=== PATIENT | female | born 1975 | race Caucasian/White ===

== ENCOUNTER → 2020-02-25 13:43 | Outpatient (CLI) | payer OTHER, SELFPAY ==
--- NOTE | ~2020-02-25 | US_ITS ---
EXAMINATION: US pelvic complete w TV DATE: 02/25/2020 14:22 INDICATION: Right lower quadrant pain TECHNIQUE: Multiple transabdominal and endovaginal sonographic images of the pelvis were obtained. COMPARISON: CT, 05/28/2019 FINDINGS: The uterus measures 10.9 x 4.9 x 5.4 cm. The endometrial complex measures 10 mm. The right ovary measures 1.7 x 1.2 x 2.5 cm. The left ovary measures 3.9 x 1.7 x 3.0 cm. There is normal vascul ar flow in the ovaries. There is trace, likely physiologic free fluid in the pelvis. IMPRESSION: 1. No sonographic correlate for the patient's symptoms. Reviewed, dictated and finalized at location A.
== END ==
PROVIDERS: PCP Registered Nurse; Visit Provider Registered Nurse
DX: R10.31 Right lower quadrant pain (principal); R10.2 Pelvic and perineal pain
CPT/HCPCS: 76830; 76856

== ENCOUNTER 2020-06-02 17:26 | Outpatient (CLI) | payer OTHER, SELFPAY ==
--- NOTE | ~2020-06-02 | MM_ITS ---
EXAMINATION: MM screening rico BI w bart HISTORY: Screening TECHNIQUE: Craniocaudal and mediolateral oblique 3-D tomosynthesis images were obtained and synthetic 2-D images were generated. CAD analysis was submitted and interpreted. COMPARISON: No prior mammogram is available for comparison at this institution. BREAST PARENCHYMAL COMPOSITION: Comparison to multiple prior studies sequentially, with oldest review ed study dated 03/24/2017. FINDINGS: There is no evidence of suspicious mass, calcification, or architectural distortion to sugg est malignancy in either breast. There has been no suspicious interval change. IMPRESSION: 1. No mammographic evidence of malignancy. 2. Recommend routine screening mammography in one year. BI-RADS Category 1: Negative Reviewed, dictated and finalized at location A. 3 PASTRY
== END 2020-06-02 17:27 | disposition home or self-care (01) ==
LOC: ANHIMG 17:32
PROVIDERS: PCP Registered Nurse; Visit Provider Registered Nurse
DX: Z12.31 Encounter for screening mammogram for malignant neoplasm of breast (principal)
CPT/HCPCS: 77063; 77067

== ENCOUNTER 2021-07-30 09:04 | Outpatient (CLI) | payer OTHER, SELFPAY ==
--- NOTE | ~2021-07-30 | MM_ITS ---
EXAMINATION: MM screening rico BI w bart HISTORY: Screening TECHNIQUE: Craniocaudal and mediolateral oblique 3-D tomosynthesis images were obtained and synthetic 2-D images were generated. CAD analysis was submitted and interpreted. COMPARISON: Comparison to multiple prior studies sequentially, with oldest reviewed study dated 07/2016. BREAST PARENCHYMAL COMPOSITION: The breasts are heterogenously dense, which may obscure small masses FINDINGS: There is no evidence of suspicious mass, calcification, or architectural distortion to sugg est malignancy in either breast. There has been no suspicious interval change. IMPRESSION: 1. No mammographic evidence of malignancy. 2. Recommend routine screening mammography in one year. BI-RADS Category 1: Negative Reviewed, dictated and finalized at location A. 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
== END 2021-07-30 09:05 | disposition home or self-care (01) ==
LOC: ANHIMG 09:05
PROVIDERS: PCP Registered Nurse; Visit Provider Obstetrics & Gynecology
DX: Z12.31 Encounter for screening mammogram for malignant neoplasm of breast (principal)
CPT/HCPCS: 77063; 77067

== ENCOUNTER 2022-06-13 07:38 | Observation (INO) | payer OTHER, SELFPAY ==
[2022-06-13] VITALS (35 sets, daily range): BP systolic 98–123; BP diastolic 53–78; PULSE 71–101; RESP 11–24; TEMP 36.8; O2SAT 96–100; BMI 22.4
--- NOTE | ~2022-06-13 | XR_ITS ---
EXAMINATION: XR chest 2V DATE: 06/13/2022 08:19 INDICATION: Right-sided chest pain TECHNIQUE: PA and lateral views of the chest were obtained. COMPARISON: None FINDINGS: The lungs are clear with no focal airspace opacities, pulmonary edema, pleural effusion or pneumothor ax. The cardiomediastinal silhouette is normal. Mild thoracic dextrocurvature with mild to moderate s pondylosis. IMPRESSION: 1. No acute cardiopulmonary disease. Reviewed, dictated and finalized at location B. EXTRACTOR
--- NOTE | ~2022-06-13 | US_ITS ---
Limited Abdominal Sonogram: Real-time sonographic imaging of the right upper quadrant was performed. Clinical History: Abdominal pain Findings: The liver appears normal with no evidence of mass lesion or bile duct dilatation. Main por braden vein demonstrates normal direction of flow. The gallbladder is well distended, and appears normal with no evidence of gallstone or wall thickening. The common bile duct measures 3 mm. The visualize d pancreas, aorta, and IVC are unremarkable. Impression: No significant abnormality seen. Reviewed, dictated and finalized at location . 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
--- NOTE | 2022-06-13 07:43 | ECG_ITS ---
Measurements Intervals [place] Rate: 85 P: 73 NM: 158 QRS: 65 QRSD: 89 T: 42 QT: 354 QTc: 422 Interpretive Statements SINUS RHYTHM BASELINE ARTIFACT- I, III, AVR, AVL, AVF NORMAL ECG NO PREVIOUS ECG AVAILABLE FOR COMPARISON Electronically Signed On 06-13-2022 7:52:54 EGG BUYER by Gustabo Malik D.O.
--- NOTE | 2022-06-13 07:54 | ED.CHESTPAIN ---
HPI - Chest Pain General Chief Complaint: Chest Pain Stated Complaint: r chest pain into shoulder/vomiting Time Seen by Provider: 06/13/22 07:50 History of Present Illness HPI narrative: Patient is a 46-year-old female who presents ER with chest pain. Sudden onset this morning. Right-sided. Radiates to the right shoulder. Associated with vomiting. Has been having this intermittently. PCP was going to refer her to cardiology. Recently had outpatient labs that were unremarkable and unavailable to us here. No exertional chest discomfort. No sedation eating or drinking. Had some mild epigastric discomfort. No history of gallstones. No fevers or chills. Patient reports she gets flushed the skin when this occurs. Related Data Home Medications Medication Instructions Recorded Confirmed rizatriptan 10 mg tablet 10 mg PO ONCE PRN Migraine Headache 05/31/19 06/13/22 omeprazole 20 mg capsule,delayed 20 mg PO DAILY 06/13/22 06/13/22 release Allergies Allergy/AdvReac Type Severity Reaction Status Date / Time No Known Allergies Allergy Mild Verified 07/05/21 08:35 Review of Systems Review of Systems: All systems reviewed & are unremarkable except as noted in HPI and below Constitutional: Constitutional: Denies chills, Denies fatigue and Denies fever(s) Comments: Feels flushed ENT: Denies nasal congestion and Denies sore throat Cardiovascular: Cardiovascular: Reports chest pain, Denies rapid heart rate and Reports radiating jaw, neck or arm pain Respiratory: Respiratory: Denies cough and Denies dyspnea Gastrointestinal: Gastrointestinal: Reports abdominal pain and Reports nausea Genitourinary: Genitourinary: Denies dysuria and Denies flank pain PMFSH Past Medical History Medical History Chronic constipation Kidney stones During her . No intervention required. Migraine headache (Unknown) Screening mammogram, encounter for Surgical History Surgical History No history of previous surgery Family History Family History Father Skin cancer Malignant neoplasm of prostate Cerebrovascular accident Hypertension Atrial fibrillation Mother Heart disease Chronic kidney disease Hypertension Atrial fibrillation Mitral valve replaced Aortic aneurysm Grandparent Cerebrovascular accident maternal grandfather-- Hypertension maternal grandmother-- Social History Social History Smoking status: Never smoker Alcohol intake: never Substance use: never Substance use type: does not use Lack of Transportation: No Lack of Food: Never True Current Housing: I Have Housing Concerned About Future Housing: No Difficulty Paying Gas/Electric Bills: No Difficulty Paying for Meds: No Currently Unemployed: No Education: Associate Degree Difficulty w/ Childcare or Family Care: No Living arrangements: other Additional living arrangements comments: The patient lives at home with her and has 5 children. All were delivered vaginally. 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 HEAD: Normocephalic, atraumatic. ENT: Mucous membranes moist. CHEST: Clear to auscultation. No respiratory distress. HEART: Regular rate and rhythm. No murmur heard. Normal peripheral pulses. ABDOMEN: Soft, nontender, nondistended. EXTREMITIES: Normal range of motion. No edema. SKIN: Warm, dry, no rash. N
[2022-06-13 08:11] LABS: Basophils Percent Auto 0.3 % (0.2-1.2); Eosinophils Absolute Auto 0.1 K/mm3 (0-0.3); Eosinophils Percent Auto 0.9 % (0-4.4); Hematocrit 39.2 % (37.0-47.0); Hemoglobin 13.1 g/dL (12.0-15.0); Immature Granulocyte Absolute 0.02 K/mm3 (0.00-0.031); Immature Granulocyte Percent A 0.3 % (0-0.5); Lymphocytes Absolute Auto 2.25 K/mm3 (0.9-3.2); Lymphocytes Percent Auto 39.3 % (18.3-44.2); Mean Corpuscular HGB Conc 33.4 g/dl (32-36); Mean Corpuscular Hemoglobin 30.1 pg (26-34); Mean Corpuscular Volume 90.1 fl (80-100); Mean Platelet Volume 10.1 fl (7.4-10.4); Monocytes Absolute Auto 0.3 K/mm3 (0.1-0.6); Monocytes Percent Auto 5.4 % (2.6-8.5); Neutrophils Absolute Auto 3.1 K/mm3 (1.3-6.7); Neutrophils Percent Auto 53.8 % (45.5-73.1); Platelet Count Result 225 k/mm3 (150-375); Red Blood Count 4.35 M/mm3 (4.2-5.4); Red Cell Distribution Width 12.7 % (11.5-14.5); White Blood Count 5.7 K/mm3 (4.5-10.0)
[2022-06-13 08:17] LABS: INR 0.9; Prothrombin Time 11.9 Seconds (11.1-14.7)
[2022-06-13 08:18] LABS: Alanine Aminotransferase 19 U/L (6-35); Albumin Level 4.5 g/dL (3.5-5.1); Alkaline Phosphatase 68 U/L (38-126); Anion Gap 7 mmol/L (8-16); Aspartate Amino Transferase 21 U/L (14-36); Bilirubin,Total 0.4 mg/dL (0.2-1.3); Blood Urea Nitrogen 25 mg/dL (7-17); Calcium 9.1 mg/dL (8.4-10.2); Carbon Dioxide 26 mmol/L (22-30); Chloride 104 mmol/L (98-107); Estimated CRCL calculation 76 ml/min; Estimated Glomerular Filt Rate > 60; Glucose 100 mg/dL (65-110); Lipase 139 U/L (23-300); Partial Thromboplastin Time 23.3 SECONDS (22.3-36.8); Sodium 137 mmol/L (137-145)
[2022-06-13 08:29] LABS: Troponin I < 0.012 ng/mL (0.000-0.034)
[2022-06-13 11:25] LABS: Troponin I 0.017 ng/mL (0.000-0.034)
[2022-06-13] MEDS: NITROGLYCERIN SL 0.4 MG TABLET SUBLINGUAL (12:38)
[2022-06-13 12:44] LABS: Influenza A QL RT-PCR Negative (Negative); Influenza B QL RT-PCR Negative (Negative); SARS-CoV-2 RNA PCR Negative
--- NOTE | 2022-06-13 13:52 | ADMGEN ---
This patient, Elizabeth Shepherd, was admitted to Intensive Care Unit-9. Patient/family oriented to hospital policies and general routines including ID bracelet, bed and alarms, visiting hours, pain management, procedures, bathroom and other care routines, personal items, smoking policy, room service/diet, and visiting hours. Information on how to activate the Rapid Response Team has been discussed. Patient/Family are encouraged to report perceived risks to care and to ask questions if they do not understand what they are told or what they should do.
[2022-06-13 15:26] LABS: Troponin I < 0.012 ng/mL (0.000-0.034)
--- NOTE | 2022-06-13 15:26 | PM.IMHP ---
H&P: HPI History of Present Illness Date/Time: 06/13/22 15:26 Chief Complaint: Chest pain Narrative: this is a very pleasant 46-year-old woman without any prior history of cardiac problems who was admitted to the hospital from the emergency room after she was awakened this morning with chest pain at her residence and came into the emergency room to have this evaluated. The patient is feeling well now and does not have any complaints. She was awakened with the symptoms at about 630 this morning from sleep and describes it as a relatively sharp right precordial chest pain as center around the right breast and then moved to the center of the chest in the substernal location it then radiated into the right shoulder and into the right side of the neck. The discomfort at its worst was rather severe she and her elected to come to the emergency room for to have this evaluated. She states that by the time she got here the pain was significantly improved on its own. The pain was alleviated the rest of the way when she took a nitroglycerin tablet. Her electro cardiogram was unremarkable. She has had 2 levels of troponins that were negative down there. In the face of that the ED physician still determined to admit her to the hospital for further evaluation. The 3rd troponin sample is pending at the time of this dictation. 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 Apparently she did have ultrasound of her right upper quadrant in the emergency room that was also negative. She is a lifelong nonsmoker and there is no family history of premature ischemic heart disease Review of Systems Constitutional: Constitutional: Reports no additional constitutional complaints Eyes: Eyes: Reports no additional eye complaints ENT: Reports system reviewed and no additional complaints, except as documented Cardiovascular: Cardiovascular: Reports as per HPI Respiratory: Respiratory: Reports no additional respiratory complaints Gastrointestinal: Gastrointestinal: Reports no additional gastrointestinal complaints Musculoskeletal: Musculoskeletal: Reports no additional musculoskeletal complaints Integumentary/Breasts: Skin/Breast: Reports system reviewed and no additional complaints, except as docu Neurologic: Reports system reviewed and no additional complaints, except as documented [facility] Past Medical History Medical History (Updated 06/13/22 @ 15:32 by Darrion Mtz MD) Chronic constipation Kidney stones During her . No intervention required. Migraine headache (Unknown) Screening mammogram, encounter for Surgical History Surgical History (Updated 06/13/22 @ 09:55 by Samuel Tran MD) No history of previous surgery Family History Family History Father Skin cancer Malignant neoplasm of prostate Cerebrovascular accident Hypertension Atrial fibrillation Mother Heart disease Chronic kidney disease Hypertension Atrial fibrillation Mitral valve replaced Aortic aneurysm Grandparent Cerebrovascular accident maternal grandfather-- Hypertension maternal grandmother-- Social History Social History (Updated 07/05/21 @ 08:37 by Janny Newton [facility]) Smoking status: Never smoker Alcohol intake: never Substance use: never Substance use type: does not use Lack of Transportation: No Lack of Food: Never True Current Housing: I Have Housing Concerned About Future Housing: No Difficulty Paying Gas/Electric Bills: No Difficulty Paying for Meds: No Currently Unemployed: No Education: Associate Degree Difficulty w/ Childcare or Family Care: No Living arrangements: other Additional living arra
--- NOTE | 2022-06-13 15:41 | PM.SD2 ---
Same Day Admit/Disch: HPI History of Present Illness Chief complaint: Chest Pain Narrative: Elizabeth Shepherd is a 46 year old female without any prior history of cardiac problems who was admitted to the hospital from the emergency room after she was awakened this morning with chest pain at her residence and came into the emergency room to have this evaluated. The patient is feeling well now and does not have any complaints. She was awakened with the symptoms at about 630 this morning from sleep and describes it as a relatively sharp right precordial chest pain as center around the right breast and then moved to the center of the chest in the substernal location it then radiated into the right shoulder and into the right side of the neck. The discomfort at its worst was rather severe she and her elected to come to the emergency room for to have this evaluated. She states that by the time she got here the pain was significantly improved on its own. The pain was alleviated the rest of the way when she took a nitroglycerin tablet. Her electro cardiogram was unremarkable. She has had 2 levels of troponins that were negative down there. In the face of that the ED physician still determined to admit her to the hospital for further evaluation. The 3rd troponin sample is pending at the time of this dictation. 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 Apparently she did have ultrasound of her right upper quadrant in the emergency room that was also negative. She is a lifelong nonsmoker and there is no family history of premature ischemic heart disease [facility] Past Medical History Medical History Chronic constipation Kidney stones During her . No intervention required. Migraine headache (Unknown) Screening mammogram, encounter for Surgical History Surgical History No history of previous surgery Family History Family History Father Skin cancer Malignant neoplasm of prostate Cerebrovascular accident Hypertension Atrial fibrillation Mother Heart disease Chronic kidney disease Hypertension Atrial fibrillation Mitral valve replaced Aortic aneurysm Grandparent Cerebrovascular accident maternal grandfather-- Hypertension maternal grandmother-- Social History Social History Smoking status: Never smoker Alcohol intake: never Substance use: never Substance use type: does not use Lack of Transportation: No Lack of Food: Never True Current Housing: I Have Housing Concerned About Future Housing: No Difficulty Paying Gas/Electric Bills: No Difficulty Paying for Meds: No Currently Unemployed: No Education: Associate Degree Difficulty w/ Childcare or Family Care: No Living arrangements: other Additional living arrangements comments: The patient lives at home with her and has 5 children. All were delivered vaginally. 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
== END 2022-06-13 16:23 | disposition home or self-care (01) ==
LOC: ANHED 08:06 → ANHICU 13:04
PROVIDERS: Admitting Provider Specialist; Emergency Provider Emergency Medicine; PCP Registered Nurse; Visit Provider Specialist
DX: R07.9 Chest pain, unspecified (principal); R11.10 Vomiting, unspecified; R10.13 Epigastric pain; K59.09 Other constipation; R77.8 Other specified abnormalities of plasma proteins; Z79.899 Other long term (current) drug therapy
CPT/HCPCS: 36415; 71046; 76705; 80053; 83690; 84484; 85025; 85610; 85730; 87636; 93005; 99285; A9270; G0378

== ENCOUNTER 2022-08-05 08:13 | Outpatient (CLI) | payer OTHER, SELFPAY ==
--- NOTE | ~2022-08-05 | MM_ITS ---
EXAMINATION: MM screening rico BI w bart HISTORY: Screening mammogram TECHNIQUE: Craniocaudal and mediolateral oblique 3-D tomosynthesis images were obtained and synthetic 2-D images were generated. CAD analysis was submitted and interpreted. COMPARISON: 07/30/2021, 06/02/2020, 04/26/2019 bilateral screening mammogram examinations BREAST PARENCHYMAL COMPOSITION: There are scattered areas of fibroglandular density. FINDINGS: There is no evidence of suspicious mass, calcification, or architectural distortion to sugg est malignancy in either breast. There has been no suspicious interval change. IMPRESSION: 1. No mammographic evidence of malignancy. 2. Recommend routine screening mammography in one year. BI-RADS Category 1: Negative Reviewed, dictated and finalized at location A.
== END 2022-08-05 08:14 | disposition home or self-care (01) ==
LOC: ANHIMG 08:17
PROVIDERS: PCP Registered Nurse; Visit Provider Obstetrics & Gynecology
DX: Z12.31 Encounter for screening mammogram for malignant neoplasm of breast (principal)
CPT/HCPCS: 77063; 77067

== ENCOUNTER 2023-08-31 08:10 | Outpatient (CLI) | payer OTHER, SELFPAY ==
--- NOTE | ~2023-08-31 | MM_ITS ---
EXAMINATION: MM screening rico BI w bart HISTORY: Screening mammogram TECHNIQUE: Craniocaudal and mediolateral oblique 3-D tomosynthesis images were obtained and synthetic 2-D images were generated. CAD analysis was submitted and interpreted. COMPARISON: 08/05/2022, 07/30/2021 bilateral screening mammogram examinations BREAST PARENCHYMAL COMPOSITION: There are scattered areas of fibroglandular density. FINDINGS: There is no evidence of suspicious mass, calcification, or architectural distortion to sugg est malignancy in either breast. There has been no suspicious interval change. IMPRESSION: 1. No mammographic evidence of malignancy. 2. Recommend routine screening mammography in one year. BI-RADS Category 1: Negative Reviewed, dictated and finalized at location A.
== END 2023-08-31 08:11 | disposition home or self-care (01) ==
PROVIDERS: PCP Registered Nurse; Visit Provider Obstetrics & Gynecology
DX: Z12.31 Encounter for screening mammogram for malignant neoplasm of breast (principal)
CPT/HCPCS: 77063; 77067

== ENCOUNTER 2024-03-04 11:17 | Outpatient (CLI) | payer OTHER, SELFPAY ==
--- NOTE | ~2024-03-04 | US_ITS ---
Pelvic ultrasound. Clinical History: Pelvic pain Technique: Realtime transabdominal and transvaginal scanning of the pelvis was performed. Color flow Doppler and Doppler spectral analysis were performed. Findings: The uterus is anteverted. The endometrial stripe has a thickness of 7 mm. Probable small i ntramural fibroid measures 8 mm in diameter. The right ovary measures 1.6 x 1.8 x 1.5 cm. Right ovarian cyst measures 1.4 cm. The left ovary measures 2.5 x 2.5 x 2.0 cm. Left ovarian cyst measures 1.7 cm. There is no evidence of free fluid in the cul de sac. Impression: Small bilateral simple ovarian cysts, as above. Reviewed, dictated and finalized at location M. Impression: Small bilateral simple ovarian cysts, as above.
== END 2024-03-04 11:18 | disposition home or self-care (01) ==
LOC: GOSHIMG 11:18
PROVIDERS: PCP Registered Nurse; Visit Provider Obstetrics & Gynecology
DX: R10.2 Pelvic and perineal pain (principal); N83.201 Unspecified ovarian cyst, right side; N83.202 Unspecified ovarian cyst, left side
CPT/HCPCS: 76830; 76856

== ENCOUNTER 2024-05-10 08:45 | Outpatient (RCR) | payer OTHER, SELFPAY ==
--- NOTE | 2024-03-13 10:11 | OPREHPOC ---
Outpatient Therapy Plan of Care This is a Multidisciplinary Plan of Care that may contain components documented by all disciplines (PT, OT, and ST.) PT Problem 1 PT Problem #1 Knowledge Deficit PT Goal 1 Goal / Goal Update 1. Patient will perform independent HEP Target Visit 3 PT Problem 2 PT Problem #2 Pain PT Goal 1 Goal / Goal Update 1. No pain with working 10 hour day 2. No pain with pelvic floor palpation Target Visit 5 PT Goal 1 Goal / Goal Update 1. Patient will demonstrate 3/5 pelvic floor strength to reduce symptoms of prolapse and pain 2. Patient will demonstrate 10 second pelvic floor endurance to reduce symptoms of prolapse and pain Target Visit 5
--- NOTE | 2024-03-13 10:12 | PTOPEVAL1 ---
Assessment and note entered by Carolina Delcid DPT Evaluation Information Assessment Status Evaluation ICD-10 Condition Codes (PT) Weakness R53.1,R10.2 Subjective Information Pt reports she has started to notice some pelvic pressure and pain. Pain with getting up and walking around, with sexual activity. Originally started after working a 10 hour day at the beginning of February and I could feel something protruding out . Highest pain 2/10 and lowest 0/10 . Currently has a UTI and has taken back to back antibiotics. Is voiding more than 10 times a day right now due to the UTI but previously would go 3 -4 times a day, normally does not wake up at night to void. Typically can hold urge as long as needed. Denies urinary incontinence. Some pain with urination now but normally does not have any. BM once a week and has been that way forever . Reports no pain or fecal incontinence. Previously no pelvic pain. Pt has been 5 times, 5 vaginal deliveries. 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 No b/b history as well. Patient goal: feel normal, get rid of pressure and pain . No return to MD scheduled. Had pelvic ultrasound which came back normally. Patient previously did not have any pelvic floor pain or limitations with work etc. Reported Pain Level Pain Score 0: Self Report Assessment PT Clinical Summary The patient is presenting to skilled therapy with a several week history of pelvic pain and signs of pelvic organ prolapse. She presents with significantly decreased pelvic floor strength and endurance and some tenderness with palpation, as well as decreased abdominal strength. She will highly benefit from therapy to address her impairments in order to reduce pain and restore full function. Plan of Care Interventions Manual Therapy,Neuro Re-education,Patient/ Caregiver Education,Therapeutic Activities, Therapeutic Exercise PT Services Indicated Yes Treatment Frequency and 1 time a week for 5 visits Duration These treatments will address the objective and functional deficits as defined above. The patient will be advanced safely and appropriately in order for the patient to progress towards his/her prior level of function. Additional exercises will be introduced and as well as a comprehensive home exercise program upon discharge, if needed, ?to ensure carryover of functional gains achieved in the clinic. This treatment plan has been reviewed and agreement upon by the patient.
--- NOTE | 2024-04-12 10:31 | OPREHPOC ---
Outpatient Therapy Plan of Care This is a Multidisciplinary Plan of Care that may contain components documented by all disciplines (PT, OT, and ST.) PT Problem 1 PT Problem #1 Knowledge Deficit PT Goal 1 Goal / Goal Update 1. Patient will perform independent HEP Target Visit 3 Progress Met PT Problem 2 PT Problem #2 Pain PT Goal 1 Goal / Goal Update 1. No pain with working 10 hour day 2. No pain with pelvic floor palpation Target Visit 5 Progress Met PT Goal 1 Goal / Goal Update 1. Patient will demonstrate 3/5 pelvic floor strength to reduce symptoms of prolapse and pain 2. Patient will demonstrate 10 second pelvic floor endurance to reduce symptoms of prolapse and pain update 04/12/24 1. 2/5 2. 5 seconds Target Visit 8 Progress Partially Met
--- NOTE | 2024-04-12 10:32 | PTOPPROG ---
Assessment and note entered by Carolina Delcid DPT Evaluation Information Assessment Status Progress ICD-10 Condition Codes (PT) Weakness R53.1,R10.2 Subjective Information Pt reports she has been feeling improvements with therapy, no recent pelvic pain or pressure. Has not needed to grant to the bathroom or had a struggle to hold urgency. Also reports she can tell she is akhil pelvic floor muscles better but still struggles with fatigue of those muscles. Assessment PT Clinical Summary The patient has made good progress in therapy and reports decreased pain and decreased urinary urgency. She demonstrates improved core and pelvic floor strength and endurance. She continues to lack full pelvic floor strength and endurance and is unable to perform all coordination exercises. She will benefit from further therapy to address strength in order to fully function at home and work. Plan of Care Interventions Manual Therapy,Neuro Re-education,Patient/ Caregiver Education,Therapeutic Activities, Therapeutic Exercise PT Services Indicated Yes Treatment Frequency and 1 visit every other week x 3 visits Duration These treatments will address the objective and functional deficits as defined above. The patient will be advanced safely and appropriately in order for the patient to progress towards his/her prior level of function. Additional exercises will be introduced and as well as a comprehensive home exercise program upon discharge, if needed, ?to ensure carryover of functional gains achieved in the clinic. This treatment plan has been reviewed and agreement upon by the patient.
--- NOTE | 2024-05-10 09:28 | OPREHPOC ---
Outpatient Therapy Plan of Care This is a Multidisciplinary Plan of Care that may contain components documented by all disciplines (PT, OT, and ST.) PT Problem 1 PT Problem #1 Knowledge Deficit PT Goal 1 Goal / Goal Update 1. Patient will perform independent HEP Target Visit 3 Progress Met PT Problem 2 PT Problem #2 Pain PT Goal 1 Goal / Goal Update 1. No pain with working 10 hour day 2. No pain with pelvic floor palpation Target Visit 5 Progress Met PT Goal 1 Goal / Goal Update 1. Patient will demonstrate 3/5 pelvic floor strength to reduce symptoms of prolapse and pain 2. Patient will demonstrate 10 second pelvic floor endurance to reduce symptoms of prolapse and pain update 04/12/24 1. 2/5 2. 5 seconds update 05/10/24 1. met 2. 5 seconds Target Visit 8 Progress Partially Met
--- NOTE | 2024-05-10 09:29 | PTOPDC ---
Assessment and note entered by Carolina Delcid DPT Evaluation Information Assessment Status Discharge ICD-10 Condition Codes (PT) Weakness R53.1,Pelvic and perineal pain R10.2 Subjective Information Pt reports no symptoms of prolapse since last re- evaluation. No pressure or feeling like she needs to grant to the bathroom. Feels ok with discharge today Reported Pain Level Pain Score 0: Self Report Assessment PT Clinical Summary The patient has made excellent progress in therapy and reports no symptoms of prolapse for several weeks. She demonstrates improved pelvic floor strength and coordination. Due to her progress and independence with HEP, plan for discharge at this time. She has been educated to follow up with MD and/or PT as needed. Plan of Care PT Services Indicated No
== END 2024-05-10 10:49 | disposition home or self-care (01) ==
LOC: ANHPT 08:45
PROVIDERS: PCP Registered Nurse; Visit Provider Obstetrics & Gynecology
DX: R10.2 Pelvic and perineal pain (principal)
CPT/HCPCS: 97112; 97161; 97530

== ENCOUNTER 2024-09-13 08:34 | Outpatient (CLI) | payer OTHER, SELFPAY ==
--- NOTE | ~2024-09-13 | MM_ITS ---
EXAMINATION: MM screening rico BI w bart HISTORY: Screening TECHNIQUE: Craniocaudal and mediolateral oblique 3-D tomosynthesis images were obtained and synthetic 2-D images were generated. CAD analysis was submitted and interpreted. COMPARISON: Comparison to multiple prior studies sequentially, with oldest reviewed study dated 01/2018. BREAST PARENCHYMAL COMPOSITION: Not dense: There are scattered areas of fibroglandular density. FINDINGS: There is no evidence of suspicious mass, calcification, or architectural distortion to sugg est malignancy in either breast. There has been no suspicious interval change. IMPRESSION: 1. No mammographic evidence of malignancy. 2. Recommend routine screening mammography in one year. BI-RADS Category 1: Negative Reviewed, dictated and finalized at location A.
--- OUTSIDE RECORDS SUMMARY | 2024-09-13 08:45 | XMS_ITS | Referral Summary ---
Author Organization [facility] [address] Address [address] [place] [address] Care Team Providers Care Supervisor Underwriting Clerks Name Role Phone Nitza Sanchez Primary Care Provider + Fei Sutton MD Unavailable [phone] Allergies No known active allergies Medications rizatriptan (Maxalt) 10 mg tabletIndicatio ns:Migraine Take 1 tablet (10 mg total) by mouth once as needed for migraine May repeat in 2 hours if unresolved. Do not exceed 30 mg in 24 hours. 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 Never 09/09/2022 Average Number of Drinks Not on file 023 Q3: How often do you have si x or more drinks on one occasion? Never 09/09/2022 Personal Safety Answer Date Recorded Have you ever been in or are you currently in a harmful physical or emotional relationship or is someone making you feel afraid or unsafe? 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 Gender Identity Not on file Sexual Orientation Not on file Last Filed Vital Signs Vital Sign Reading Time Taken Comments Blood Pressure 119/67 09/20/2022 6:25 PM CDT Pulse 86 09/20/2022 6:25 PM CDT Temperature 36.9 C (98.4 F) 09/20/2022 6:25 PM CDT Respiratory Rate 16 09/20/2022 6:25 PM CDT Oxygen Saturation 100% 09/20/2022 6:25 PM CDT Inhaled Oxygen Concentration - - Weight 67.1 kg (148 lb) 09/09/2022 12:25 PM CDT Height 172.7 cm (5' 8 ) 09/09/2022 12:25 PM CDT Body Mass Index 22.5 09/09/2022 12:25 PM CDT Plan of Treatment Not on file [place] [address] [place] [address] [facility] Care Teams Supervisor Underwriting Clerks Relationship Specialty Start Date End Date Nitza Sanchez PA [address] [place] [address] PCP - General Nurse Practitioner 06/13/22 Fei Sutton MD [address] [place] [id number] Consulting Physician General Surgery 09/20/22
--- OUTSIDE RECORDS SUMMARY | 2024-09-13 08:45 | XMS_ITS | Clinical Summary ---
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 Surgical History Surgery Date Site/Laterality Comments VAGINAL DELIVERY x4 COLONOSCOPY Medical History Medical History Date Comments Cholelithiasis 2022 Migraines Kidney stone complicating pr egnancy, unspecified trimester stones during only Last menstrual period (LMP) > 10 days ago 2022 Social History Tobacco Use Types Packs/Day Years [...] on file 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 Gender Identity Not on file Sexual Orientation Not on file Obstetrics History Last Filed Vital Signs Vital Sign Reading [...] 09/09/2022 12:25 PM CDT Plan of Treatment Health Maintenance Due Date Last Done Comments Breast Cancer Screening-Mammogram 1973 Cervical Cancer Screening 1973 Colon Cancer Screening-Colonoscopy 1973 Depression Screening 1973 Hepatitis C Screening 1973 Hepatitis B Screening 11/05/1991 Regular Well Visit/Exam 18-64 11/05/1991 Zoster Vaccine (1 of 2) 11/05/2023 Covid-19 Vaccine (3 - season) 2024 09/09/2020, 08/12/2020 DTaP/Tdap/Td Vaccine (2 - Td or Tdap) 04/08/2024 04/08/2014 Influenza Vaccine (Season Ended) 2025 02/25/2022, 03/26/2021, 03/03/2020, Additional history exists Pneumococcal vaccine <65 Aged Out No longer eligible based on patient's age to complete this topic Insurance Care Teams Chief Operating Officer Relationship Specialty Start Date End Date Nitza Sanchez PA [address] [place] [id number] PCP - General Nurse Practitioner 06/13/22 Fei Sutton MD [address] [place] [address] Consulting Physician General Surgery 09/20/22
--- OUTSIDE RECORDS SUMMARY | 2024-09-13 08:45 | XMS_ITS | Encounter Summary ---
Author Organization [facility] Address [address] [place] [address] Care Team Providers Care Blender Operator Name Role Phone Nitza Sacnhez Primary Care Provider [phone] Encounter Details Date Type Department Care Team (Late st Contact Info) Description 03/30/2018 Abstract HEALTH INFO [facility] Lukas Lopez MD [address] [facility] [address] [place] [address] Social History Tobacco Use Types Packs/Day Years Used Date Smoking Tobacco: Never Assessed Comments Unknown Sex and Gender Information Value Date Recorded Sex Assigned at Not on file Legal Sex Female 9:41 PM CDT Gender Identity Female 01/03/2022 6:05 AM CDT Sexual Orientation Straight 01/03/2022 6: 05 AM CDT documented as of this encounter Plan of Treatment Upcoming Encounters Date Type Department Care Team (Late st Contact Info) Description 09/20/2024 10:40 AM CDT Office Visit [facility] Family & Internal Medicine [facility] [address] [place] [phone] Nitza Sanchez APNP [address] [place] [address] [phone] documented as of this encounter Visit Diagnoses Not on filedocumented in this encounter Care Teams Blender Operator Relationship Specialty Start Date End Date Nitza Sanchez APNP [address] [place] [phone] PCP - General NURSE PRACTITIONER 09/14/18 documented as of this encounter
--- OUTSIDE RECORDS SUMMARY | 2024-09-13 08:46 | XMS_ITS | Clinical Summary ---
Author Organization [facility] Address [address] [place] [address] Care Team Providers Care Reinforcing Iron Worker Helper Name Role Phone Kade Fine MD Primary Care Provide r Source Comments [facility],non-owned Affiliates and Associated Physician Practices is amultiple site organization consisting of ambulatory clinics and hospital sitesin [place], [place] and [place]. This disclosure is being madepursuant to the Care Everywhere program and may not contain all information available regarding this patient. Last updated 18.[facility] Allergies No known active allergies Medications * Be aware that medications may not be up to date on this document. Alwaysverify current medications with the patient. multivitamin daily (THERAGRAN) tablet Take 1 Tab by mouth daily with food Active amoxicillin (AMOXIL) 400 MG/5ML suspensionIndicati ons:Lymphadenopath y, submandibular Take 6.5 ml po BID for 10 days for strep throat 130 mL 9 Active Social History Tobacco Use Types Packs/Day Years Used Date Smoking Tobacco: Never Smokeless Tobacco: Never Comments No Sex and Gender Information Value Date Recorded Sex Assigned at Not on file Legal Sex Female 8:18 AM NURSE ASSISTANT Gender Identity Not on file Sexual Orientation Not on file Last Filed Vital Signs Vital Sign Reading Time Taken Comments Blood Pressure 118/66 07/27/2018 11:27 AM NURSE ASSISTANT Pulse 99 07/27/2018 11:27 AM NURSE ASSISTANT Temperature 36.9 C (98.4 F) 07/27/2018 11:27 AM NURSE ASSISTANT Respiratory Rate 16 07/27/2018 11:27 AM NURSE ASSISTANT Oxygen Saturation 98% 07/27/2018 11:27 AM NURSE ASSISTANT Inhaled Oxygen Concentration - - Weight 62.1 kg (137 lb) 07/27/2018 11:27 AM NURSE ASSISTANT Height 172.7 cm (5' 8 ) 07/27/2018 11:27 AM NURSE ASSISTANT Body Mass Index 20.83 07/27/2018 11:27 AM NURSE ASSISTANT Plan of Treatment Health Maintenance Due Date Last Done Comments COLOGUARD (AGES 45-75) - COL ON CA SCREENING 1973 COLON MONITORING 1973 COLONOSCOPY - COLON CA SCREENING 1973 CT COLONOGRAPHY - COLON CA SCREENING 1973 Colorectal Cancer Screening 1973 FIT - COLON CA SCREENING 1973 FLEX SIG - COLON CA SCREENING 1973 LIPID TESTING 1973 MAMMOGRAM 1973 PAP SMEAR 1973 HIV SCREENING 1988 HEPATITIS C SCREENING 10/31/1991 DTAP/TDAP/TD VACCINES (1 - Tdap) 1992 HEPATITIS B VACCINE (1 of 3 - 19+ 3-dose series) 1992 PNEUMOCOCCAL VACCINE 50+ (1 of 1 - PCV) 11/05/2023 ZOSTER VACCINE (1 of 2) 11/05/2023 COVID-19 VACCINE (1 - 2023-2 5 season) 2024 DEPRESSION SCREENING 05/22/2024 INFLUENZA VACCINE (Season Ended) 2025 HIB VACCINE Aged Out No longer eligi ble based on patient's age to complete this topic HPV VACCINE Aged Out No longer eligi ble based on patient's age to complete this topic MENINGOCOCCAL (Group B) VACC INE SHARED DECISION-MAKING Aged Out No longer eligibl e based on patient's age to complete this topic MENINGOCOCCAL GROUPS A/C/Y/W VACCINE Aged Out No longer eligible b ased on patient's age to complete this topic Insurance [facility] Member Subscriber Plan / Payer (Ef fective for All Dates) Name:Elizabeth Shepherd Relation to Subscriber:Self Name:Elizabeth Shepherd Payer ID:Not on file Type:PPO Address: [address] Care Teams Reinforcing Iron Worker Helper Relationship Specialty Start Date End Date Kade Fine MD PCP - General Family Medicine 06/22/17
--- OUTSIDE RECORDS SUMMARY | 2024-09-13 08:46 | XMS_ITS | Encounter Summary ---
Author Organization [facility] Address [address] [place] [address] Care Team Providers Care Wax Coating Machine Tender Name Role Phone Nitza Sanchez Primary Care Provider [phone] Encounter Details Date Type Department Care Team (Late st Contact Info) Description 03/07/2020 StartupBlink Message Enc [facility] Medical Group Family & Internal Medicine [facility] [address] [place] [address] Nitza Sanchez APNP [address] [place] [address] Test Results Social History Tobacco Use Types Packs/Day Years Used Date Smoking Tobacco: Never Smokeless Tobacco: Never Alcohol Use Standard Drinks/Week Comments Yes 0 (1 standard drink = 0.6 oz pur e alcohol) ocassionally AUDIT-C Answer Date Recorded Frequency of Alcohol Consumption 2-4 times a mon09/15/2018 Average Number of Drinks 1 or 2 019 Frequency of Binge Drinking Never 08/21 PHQ-2 Answer Date Recorded PHQ-2 Score - If the patient scores above 3, please move on to questions 3-9 0 10/04/2019 Comments No Sex and Gender Information Value Date Recorded Sex Assigned at Not on file Legal Sex Female 9:41 PM CDT Gender Identity Female 01/03/2022 6:05 AM CDT Sexual Orientation Straight 01/03/2022 6: 05 AM CDT COVID-19 Exposure Response Date Recorded In the last month, have you been in contact with someone who was confirmed or suspected to have Coronavirus / COVID-19? No / Unsure 03/03/2020 2:19 PM CDT documented as of this encounter Plan of Treatment Upcoming Encounters Date Type Department Care Team (Late st Contact Info) Description 09/20/2024 10:40 AM CDT Office Visit [facility] Family & Internal Medicine [facility] [address] [place] [address] Nitza Sanchez APNP [address] [place] [address] documented as of this encounter Visit Diagnoses Not on filedocumented in this encounter Care Teams Wax Coating Machine Tender Relationship Specialty Start Date End Date Nitza Sanchez APNP [address] [place] [address] PCP - General NURSE PRACTITIONER 09/14/18 documented as of this encounter
--- OUTSIDE RECORDS SUMMARY | 2024-09-13 08:46 | XMS_ITS | Clinical Summary ---
Author Organization [facility] Address [address] [place] [address] Care Team Providers Care Drier Operator Helper Name Role Phone Nitza Sanchez Primary Care Provider Allergies No known active allergies Medications rizatriptan (MAXALT) 10 MG tabletIndication s:Menstrual migraine without status migrainosus, not intractable Take 1 tablet (10 mg total) by mouth as needed for Migraine. May repeat in 2 hours if needed. Do not take more than 3 tablets in a 24 hours. 9 tablet 11 3 Active famotidine (PEPCID) 20 MG tabletIndication s:Gastroesophage al reflux disease without esophagitis Take 1 tablet (20 mg total) by mouth 2 (two) times daily. 180 tablet 3 4 Active cefdinir (OMNICEF) 300 MG Cap capsuleIndicatio ns:Urinary tract infection Take 1 capsule (300 mg total) by mouth 2 (two) times daily. 20 capsule 4 Active fluconazole (DIFLUCAN) 150 MG tabletIndication s:Antibiotic-ind uced yeast infection Take one tablet (150 mg) by mouth once for one dose. May repeat in 3 days with second dose if symptoms persist. 2 tablet 4 Active Active Problems Problem Noted Date Diagnosed Date Other hemorrhoids 07/28/2021 Migraine without aura and wi thout status migrainosus, not intractable 04/01/2019 GERD (gastroesophageal reflux disease) 7 Vitamin D deficiency 07/18/2016 Resolved Problems Problem Noted Date Diagnosed Date Resolved Date Screening for lipid disorders 08/28/2017 01/31/2020 Screening for endocrine, nut ritional, metabolic and immunity disorder 08/28/2017 01/31/20 20 Encounter for preventive health examination 07/05/2016 01/31/2020 Encounters Date Type Department Care Team Description 07/14/2024 MyChart Message Enc [facility] Family & Internal Medicine [address] [address] Nitza Sanchez, APDEYSI Sinus infection from Last 3 Months Immunizations Immunization Administration Dates Next Due Fluzone 6 Months+ Quad (0.5 mL Prefilled Syringe) 02/25/2022,03/26/2021,03/03/2020 Fluzone Adult - >Age 3 (Prefilled Syringe) 02/21 MODERNA COVID-19 (12+) MRNA, LNP-S, PF, 100 MCG/ 0.5 ML DOSE 09/09/2020,08/12/2020 Tdap (Adacel) 04/08/2014 Family History Medical History Relation Comments Cancer Father Skin and prostat e Hypertension Father Stroke Father a-fib Father Heart Disease Mother Hypertension Mother Kidney Disease Mother a-fib Mother Relation Status Comments Father Mother Social History Tobacco Use Types Packs/Day Years Used Date Smoking Tobacco: Never Smokeless Tobacco: Never Tobacco Cessation:Counseling Given: Not Answered Alcohol Use Standard Drinks/Week Comments Yes 0 (1 standard drink = 0.6 oz pur e alcohol) ocassionally AUDIT-C Answer Date Recorded Frequency of Alcohol Consumption 2-4 times a mon09/15/2018 Average Number of Drinks 1 or 2 019 Frequency of Binge Drinking Never 08/21 PHQ-2 Answer Date Recorded Patient Health Questionnaire-2 Score 0 09/15/2023 Comments No Sex and Gender Information Value Date Recorded Sex Assigned at Not on file Legal Sex Female 9:41 PM CDT Gender Identity Female 01/03/2022 6:05 AM CDT Sexual Orientation Straight 01/03/2022 6: 05 AM CDT Last Filed Vital Signs Vital Sign Reading Time Taken Comments Blood Pressure 138/88 03/01/2024 10:31 AM CDT Pulse 90 03/01/2024 10:31 AM CDT Temperature 36.8 C (98.3 F) 03/01/2024 10:31 AM CDT Respiratory Rate 16 03/01/2024 10:31 AM CDT Oxygen Saturation 98% 03/01/2024 10:31 AM CDT Inhaled Oxygen Concentration - - Weight 68.6 kg (151 lb 3.2 oz) 03/01/2024 10:31 AM CDT Height 172.7 cm (5' 8 ) 03/01/2024 10:31 AM CDT Body Mass Index 22.99 03/01/2024 10:31 AM CDT Plan of Treatment Upcoming Encounters Date Type Department Care Team (Late st Contact Info) Description 09/20/2024 10:40 AM CDT Office Visit [facility] Family & Internal Medicine - [address] [phone] Nitza Sanchez APNP [address] [place] [address] Health Maintenance Due Date Last Done Comments Cervical Cancer Screening Pap Smear (Age 30 to 64) Every 3 Years 1973 Hepatitis C 11/05/1991 Hepatitis B Vaccines (1 of 3 - 19+ 3-dose series) 1992 Cervical Cancer Screening Pap with HPV Testing (Age 30 to 64) Every 5 Years 11/05/2003 Pneumococcal Vaccine: 50+ Years (1 of 1 - PCV) 11/05/2023 Zoster Vaccines (1 of 2) 11/05/2023 COVID-19 Vaccine (3 - 2023- season) 2024 09/09/2020, 08/12/2020 DTaP, Tdap and Td Vaccines (2 - Td or Tdap) 04/08/2024 04/08/2014 PHQ-2 (Physician [place]) 05/22/2024 09/15/2023 Annual Physical 09/14/2024 09/15/2023, 07/20, 07/23/2021, Additional history exists Cervical Cancer Screening with HPV 09/14/2024 Postponed from 11/05/2003 (Going to Outside Clinic) Mammogram Screening 08/30/2025 08/31/2023, 08/05/2022, 07/30/2021, Additional history exists Colorectal Cancer Screening Colonoscopy (10 Years) 10/09/2031 10/08/2021, 10/08/2021 Meningococcal B Vaccine Aged Out No l onger eligible based on patient's age to complete this topic Meningococcal Vaccine Aged Out No tina elie eligible based on patient's age to complete this topic RSV Immunizations Under 20 Months Aged Out No longer eligible based on patient's age to complete this topic Procedures Procedure Name Priority Date/Time Associated Diagnosis Comments MAMMOGRAM GENERIC (SCAN ORDER) 08/31/2023 COLONOSCOPY Routine 10/08/2021 10:15 AM CDT from Last 3 Months or Most Recently Relevant to Health Maintenance Results * MAMMOGRAM GENERIC (SCAN ORDER) (08/31/2023) Anatomical Region Laterality Modality Other 08/31/2023 [facility] Scanned SCANNING Final Resu lt from Last 3 Months or Most Recently Relevant to Health Maintenance Insurance [facility] Care Teams Drier Operator Helper Relationship Specialty Start Date End Date Nitza Sanchez APNP [address] [place], [place] [phone] PCP - General NURSE PRACTITIONER 09/14/18
--- OUTSIDE RECORDS SUMMARY | 2024-09-13 08:46 | XMS_ITS | Encounter Summary ---
Author Organization [facility] Address [address] [place] [address] Care Team Providers Care Parts Casting Machine Operator Name Role Phone Nitza Sanchez Primary Care Provider [phone] Encounter Details Date Type Department Care Team (Late st Contact Info) Description 09/22/2020 Twinglyt Message Enc [facility] Medical Group Family & Internal Medicine [facility] [address] [place] [address] Nitza Sanchez APNP [address] [place] [address] Medication Questions Social History Tobacco Use Types Packs/Day Years [...] have Coronavirus / COVID-19? No / Unsure 09/07/2020 9:28 PM CDT documented as of this encounter Plan of Treatment Upcoming Encounters Date Type Department Care Team (Late st Contact Info) Description 09/20/2024 10:40 AM CDT Office Visit [facility] Group Family & Internal Medicine [facility] [address] [place] [address] Nitza Sanchez APNP [facility] [place] [address] documented as of this encounter Visit Diagnoses Not on filedocumented in this encounter Care Teams Parts Casting Machine Operator Relationship Specialty Start Date End Date Nitza Sanchez APNP [address] [place] [address] PCP - General NURSE PRACTITIONER 09/14/18 documented as of this encounter
== END 2024-09-13 08:35 | disposition home or self-care (01) ==
LOC: ANHIMG 08:35
PROVIDERS: PCP Registered Nurse; Visit Provider Obstetrics & Gynecology
DX: Z12.31 Encounter for screening mammogram for malignant neoplasm of breast (principal)
CPT/HCPCS: 77063; 77067